=== PATIENT | male | born 1965 | race Caucasian/White ===

== ENCOUNTER 2024-07-13 20:03 | Inpatient (IN) | payer MEDICAID, OTHER ==
[~2024-07-13] VITALS: Ht 180.3 cm; Wt 85.6 kg
[2024-07-13 20:23] LABS: Basophils # (auto) 0.1 10 ^3/uL (0-0.2); Eosinophils # (auto) 0.1 10 ^3/uL (0-0.8); Eosinophils % (auto) 0.9 % (0.0-7.0); Hematocrit 49.5 % (41.0-53.0); Lymphocytes # (auto) 2.7 10 ^3/uL (0.4-5.4); Lymphocytes % (auto) 28.2 % (10.0-50.0); Mean Corpuscular Hemoglobin 33.8 pg (28.0-32.0); Mean Corpuscular Hgb Conc. 34.3 g/dL (32.0-36.0); Mean Corpuscular Volume 98.7 fL (80.0-100.0); Monocytes # (auto) 0.9 10 ^3/uL (0-1.3); Monocytes % (auto) 9.7 % (0.0-12.0); Neutrophils # (auto) 5.7 10 ^3/uL (1.6-8.6); Neutrophils % (auto) 60.2 % (37.0-80.0); Nucleated Red Blood Cells % 0.2 %; Platelet Count (auto) 170 10^3/uL (140-450); Red Blood Cells 5.01 10^6/uL (4.5-5.90); Red Cell Distribution Width 13.2 % (11.8-14.3); White Blood Cell 9.5 10^3/uL (4.4-10.8)
--- NOTE | 2024-07-13 20:24 | ED.PDOC ---
History of Present Illness HPI Comments 58 y/o M, with a history of unspecified chronic blood clot disorder, DM, and HTN w/Clonidine PRN, presents with c/o chest, neck, and lower back pain, palpitations, and shortness of breath. Patient is a poor historian. He endorses on symptoms being ongoing for unspecified amount of time and worsening within t he past few days. Patient endorses on pain being a pounding sensation localized underneath his IVC filter. Reports upcoming appointment with his traffic attendant, Dr. Cuadra, in addition to being referred to [facility] after his old inweaver, Dr. Paez, moved to another facility. Patient denies having any nausea, vomiting, cough, congestion, fever, chills, or further associated symptoms. Time Seen by MD: 20:10 Reviewed Notes: Nurses Notes, Medications, Allergies Allergies: Coded Allergies: Ketorolac Tromethamine (Verified Allergy, Severe, 07/13/24) Topiramate (Verified Allergy, Severe, 07/13/24) Tramadol (Verified Allergy, Severe, 07/13/24) Home Meds Reported Medications Insulin Lispro (Humalog Kwikpen) 100 Unit/Ml Inj, SC unknown dosage 07/15/24 Insulin Glargine (Basaglar Kwikpen) 100 Unit/Ml Inj, SC unknown dosage 07/15/24 Carvedilol (Carvedilol) 25 Mg Tab, 1 TAB PO BID 07/15/24 Spironolactone (Spironolactone) 50 Mg Tab, 1 TAB PO DAILY 07/15/24 Umeclidinium [place] (Incruse Ellipta) 62.5 Mcg/Inh Inh, 1 PUFF INH DAILY 07/15/24 Pantoprazole Sodium Sesquihydr (Pantoprazole Sodium) 40 Mg Tab, 1 TAB PO DAILY 07/15/24 Hydralazine HCl (Hydralazine HCl) 25 Mg Tab, 1 TAB PO TID 07/15/24 Losartan Potassium (Losartan Potassium) 100 Mg Tab, 1 TAB PO DAILY 07/15/24 Enoxaparin Sodium (Lovenox) 80 Mg/0.8 Ml Ij, 80 MG SC BID, INJ 07/14/24 Information Source: Patient Mode of Arrival: Ambulatory Severity: Moderate Timing: Days Duration: Since onset Prehospital treatment: None Past Medical History PAST MEDICAL HISTORY: DM, HTN Past Medical History (Other): unspecified chronic blood clot disorder Surgical History (Other): neck and back spinal fusion, left-hip surgery Family History Family History: Unknown Social History Smoker: Non-Smoker Alcohol: Denies ETOH Use Drugs: Denies Drug Use Lives In: Home All Other Systems: Reviewed and Negative (Comprehensive systems review obtained and negative except for what is stated in the HPI.) Physical Exam General Appearance: Normal, Other (anxious appearing ) HEENT: Normal ENT Inspection, Pharynx Normal, TMs Normal Neck: Full Range of Motion, Non-Tender, Normal, Normal Inspection Respiratory: Chest Non-Tender, Lungs Clear, No Accessory Muscle Use, No Respiratory Distress, Normal Breath Sounds Cardiovascular: No Edema, No JVD, No Murmur, No Gallop, Normal Peripheral Pulses, Tachycardia, Other (regular rhythm) Breast Exam: Deferred Gastrointestinal: No Organomegaly, Non Tender, No Pulsatile Mass, Normal Bowel Sounds, Soft Genitalia: Deferred Pelvic: Deferred Rectal: Deferred Extremities: No calf tenderness, Normal capillary refill, Normal inspection, Normal range of motion, Non-tender, No pedal edema Musculoskeletal : Apperance: Normal Neurologic: Alert, international broadcast music librarian II-XII nml as Tested, No Motor Deficits, Normal Affect, Normal Mood, No Sensory Deficits Cerebellar Function: Normal Reflexes: Normal Skin: Dry, Normal Color, Warm Lymphatic: No Adenopathy Was a procedure done? Was a procedure done?: No EKG EKG : Pulse Rate (adult): 118 [place]: LAD Cardiac Rhythm: ST Block: None Hypertrophy: None ST: Normal Differential Dx Considerations may include: NE, PE, ACS, URI, PNA, anxiety, angina, gastritis, gastroenteritis, costochondritis, pericarditis, among others X-Ray, Labs, Meds, VS Vital Signs Date Time Temp Pulse Resp B/P (MAP) Pulse Ox O2 Delivery O2 Flow Rate FiO2 07/13/24 23:04 69 20 96 Room Air* 0 21 07/13/24 23:04 98.0 69 20 154/118 (130) 96 98.0 07/13/24 22:56 69 20 154/118 07/13/24 21:08 115 07/13/24 20:27 118 07/13/24 20:10 118 07/13/24 20:04 98.0 125 20 167/128 (141) 97 98.0 Lab Test 07/14/24 00:13 07/13/24 23:23 07/13/24 22:54 07/13/24 22:47 Range/Units POC Glucose 344 H 420 *H 70-106 mg/dl Sodium Level 132 #L 136-145 mmol/L Potassium Level 4.0 3.5-5.1 mmol/L Chloride Level 102 98-107 mmol/L Carbon Dioxide Level 14 L 20-31 mmol/L Anion Gap 16 H 5-15 Blood Urea Nitrogen 36 H 9-23 mg/dL Creatinine 1.64 H 0.700-1.30 mg/dL Glomerular Filtration Rate Calc 48 >90 mL/min BUN/Creatinine Ratio 22.0 H 10.0-20.0 Serum Glucose 379 #H 74-106 mg/dL Calcium Level 10.0 8.7-10.4 mg/dL Phosphorus Level 2.6 2.4-5.1 mg/dL Magnesium Level 1.7 1.6-2.6 mg/dL Troponin I High Sensitivity 48 </=54 ng/L Blood Gas Specimen Type Venous Blood Gas Sample Site Vbg - n/a Blood Gas Patient Temperature 37.0 Arterial Blood Date Drawn [id number] Rivera Test N/a Venous Blood pH 7.390 7.320-7.430 Venous Blood pCO2 at Patient Temp 23.1 L 38.0-54.0 mmHg Venous Blood pO2 at Patient Temp 54.6 H 23.0-48.0 mmHg Venous Blood HCO3 13.7 L 22.0-29.0 mmol/L Venous Blood Base Excess -9.0 L -2.0-3.0 mmol/L Blood Gas Liter Flow 0.00 Blood Gas Modality Room air Blood Gas Spontaneous Rate 22 FiO2 % 21.0 Specimen Drawn By Bridgette stout rn Test 07/13/24 21:12 07/13/24 20:12 Range/Units Serum Osmolality 312 H 278-298 mOsm/kg Troponin I High Sensitivity 39 43 </=54 ng/L White Blood Count 9.5 4.4-10.8 10^3/uL Red Blood Count 5.01 4.5-5.90 10^6/uL Hemoglobin 17.0 13.5-17.5 g/dL Hematocrit 49.5 41.0-53.0 % Mean Corpuscular Volume 98.7 80.0-100.0 fL Mean Corpuscular Hemoglobin 33.8 H 28.0-32.0 pg Mean Corpuscular Hemoglobin Concent 34.3 32.0-36.0 g/dL Red Cell Distribution Width 13.2 11.8-14.3 % Platelet Count 170 140-450 10^3/uL Mean Platelet Volume 8.5 6.9-10.8 fL Neutrophils (%) (Auto) 60.2 37.0-80.0 % Lymphocytes (%) (Auto) 28.2 10.0-50.0 % Monocytes (%) (Auto) 9.7 0.0-12.0 % Eosinophils (%) (Auto) 0.9 0.0-7.0 % Basophils (%) (Auto) 1.0 0.0-2.0 % Neutrophils # (Auto) 5.7 1.6-8.6 10 ^3/uL Lymphocytes # (Auto) 2.7 0.4-5.4 10 ^3/uL Monocytes # (Auto) 0.9 0-1.3 10 ^3/uL Eosinophils # (Auto) 0.1 0-0.8 10 ^3/uL Basophils # (Auto) 0.1 0-0.2 10 ^3/uL Nucleated Red Blood Cells 0.2 % D-Dimer, Quantitative 0.26 0.0-0.49 mg/L FEU Sodium Level 127 L 136-145 mmol/L Potassium Level 4.2 3.5-5.1 mmol/L Chloride Level 93 L 98-107 mmol/L Carbon Dioxide Level 14 L 20-31 mmol/L Anion Gap 20 H 5-15 Blood Urea Nitrogen 27 H 9-23 mg/dL Creatinine 1.91 H 0.700-1.30 mg/dL Glomerular Filtration Rate Calc 40 >90 mL/min BUN/Creatinine Ratio 14.1 10.0-20.0 Serum Glucose 498 *H 74-106 mg/dL Calcium Level 11.7 H 8.7-10.4 mg/dL B-Type Natriuretic Peptide 44.89 0-100 pg/mL Beta-Hydroxybutyric Acid 1.826 H < 0.4 mmol/L Time of 1ST Reevaluation: 20:40 Reevaluation 1ST: Unchanged Patient Education/Counseling: Diagnosis, Treatment, Other (need for admission ) Family Education/Counseling: No Family Present Additional Information Reviewed patient's previous visit(s): N/A The following tests were ordered, and results were reviewed by me: BNP, D-dimer, UA, EKG, troponin, CXR, CBC, BMP Additional information was gathered from interviewing the following independent historian: N/A I reviewed and agreed with the following test results read by other provider: CXR I discussed treatments and results with medical personnel and: PATIENT Departure 1 Departure Time of Disposition: 05:01 (Patient presented in DKA. We will admit patient for further workup) Impression: Primary Impression: DKA, type 2, not at goal Additional Impressions: Chest pain Qualified Codes: R07.9 - Chest pain, unspecified Shortness of breath Disposition: ADMITTED INPATIENT Admit to: ICU Condition: Critical Critical Care Note Critical Care Time?: Yes Critical care comment: DKA Authorized and Performed by: Chela Irizarry MD Total critical care time: Approximately 39 minutes Due to a high probability of clinically significant, life threatening deterioration, the patient required my highest level of preparedness to intervene emergently and I personally spent this critical care time directly and personally managing the patient. This critical care time included obtaining a history; examining the patient; pulse oximetry; ordering and review of studies; arranging urgent treatment with development of a management plan; evaluation of patient's response to treatment; frequent reassessment; and, discussions with other providers. This critical care time was performed to assess and manage the high probability of imminent, life-threatening deterioration that could result in multi-organ failure. It was exclusive of separately billable procedures and treating other patients and teaching time. Please see my other sections and the rest of the note for further information on patient assessment and treatment. Stability Stability form required: No Heart Score Heart Score: Heart Score Response (Comments) Value History Moderate Suspicious 1 EKG Normal 0 Age 45-64 1 Risk Factors >3 or Hx ASHD 2 Troponin Normal limit 0 Total 4 I personally scribed for CHELA RIIZARRY MD ([email or web address]) on 07/13/24 at 20:24. Electronically submitted by Kaz Callahan ([email or web address]). I personally scribed for CHELA IRIZARRY MD ([email or web address]) on 07/13/24 at 20:27. Electronically submitted by Kaz Callahan ([email or web address]). I personally scribed for CHELA IRIZARRY MD ([email or web address]) on 07/13/24 at 21:19. Electronically submitted by Kaz Callahan ([email or web address]). CHELA IRIZARRY MD July 13, 2024 20:24
[2024-07-13 20:32] LABS: Potassium 4.2 mmol/L (3.5-5.1)
[2024-07-13 20:33] LABS: Anion Gap 20 (5-15)
[2024-07-13 20:38] LABS: BUN/Creatinine Ratio 14.1 (10.0-20.0)
[2024-07-13 20:41] LABS: Blood Urea Nitrogen 27 mg/dL (9-23); Calcium 11.7 mg/dL (8.7-10.4); Carbon Dioxide 14 mmol/L (20-31); Chloride 93 mmol/L (98-107); Sodium 127 mmol/L (136-145)
[2024-07-13 20:44] LABS: Glucose 498 mg/dL (74-106)
--- NOTE | 2024-07-13 21:44 | DVH ---
CHEST RADIOGRAPH Indication: CHEST PAIN Technique: Single frontal view of the chest was obtained Comparison: None FINDINGS: Lines and Tubes: None Lungs: No focal consolidation. Pleura: No effusion. No pneumothorax. Cardiomediastinal contours: Unremarkable Bones: No acute osseous abnormality. Partially visualized cervical fixation hardware. IMPRESSION: No acute cardiopulmonary disease.
[2024-07-13] MEDS: SODIUM CHLORIDE 0.9% 1,000 ML IV SCH (22:45)
[2024-07-13] MEDS ORDERED: DEXTROSE (50%) 50ML SYRG IV PRN (22:45)
[2024-07-13] MEDS: INSULIN DRIP 100 UNIT/100ML 100 ML IV SCH (22:45)
[2024-07-13] MEDS: METOCLOPRAMIDE HCL 5MG/ml INJ 2ml VIAL IV ONE (22:56)
[2024-07-13] MEDS: MORPHINE SULFATE 4 MG/ML SYR/VIAL IV ONE (22:56)
[2024-07-13] MEDS: SODIUM CHLORIDE 0.9% 1,000 ML IV ONE (22:57)
[2024-07-13] MEDS: InsuLIN REG 1unit/0.01ml Soln (100units/ml) IV ONE (22:58)
[2024-07-13] MEDS: ACETAMINOPHEN 325 MG TAB PO ONE (22:58)
[2024-07-13 23:04] VITALS: PULSE 69; RESP 20; O2SAT 96
[2024-07-13 23:47] LABS: Chloride 102 mmol/L (98-107)
[2024-07-13 23:48] LABS: Anion Gap 16 (5-15)
[2024-07-13 23:54] LABS: Magnesium 1.7 mg/dL (1.6-2.6)
[2024-07-13 23:55] LABS: Phosphorus 2.6 mg/dL (2.4-5.1)
[2024-07-14] LABS: Blood Urea Nitrogen 36 mg/dL (9-23); Carbon Dioxide 14 mmol/L (20-31); Glucose 379 mg/dL (74-106); Sodium 132 mmol/L (136-145)
[2024-07-14] MEDS: SODIUM CHLORIDE 0.9% 1,000 ML IV ONE (00:06)
[2024-07-14] MEDS: ACCU-CHEK COMFORT CURVE STRIP VI SCH ×3 (00:11→18:58)
[2024-07-14] MEDS: INSULIN LANTUS (GLARGINE) 1 /0.01ml (100units/ml) SC ONE (00:18)
[2024-07-14] MEDS ORDERED: MORPHINE SULFATE INJ 2 MG/ml SYRG IV PRN (00:30)
[2024-07-14] MEDS ORDERED: METOCLOPRAMIDE HCL 5MG/ml INJ 2ml VIAL IV PRN (00:30)
[2024-07-14] MEDS ORDERED: D5W/SOD CHL 0.45%/KCL 20MEQ 1,000 ML IV PRN (00:30)
[2024-07-14] MEDS ORDERED: NITROGLYCERIN 0.4 MG SL TAB SL PRN (00:30)
[2024-07-14] MEDS ORDERED: DOCUSATE SOD 100 MG CAP PO PRN (00:30)
[2024-07-14] MEDS ORDERED: MAGNESIUM SULFATE 1GM/100ML 200 ML IV ONE (00:30)
[2024-07-14] MEDS ORDERED: ACETAMINOPHEN 325 MG TAB PO PRN (00:30)
[2024-07-14] MEDS ORDERED: DEXTROSE (50%) 50ML SYRG IV PRN ×2 (00:30→17:00)
[2024-07-14] MEDS: SODIUM CHLORIDE 0.9% 1,000 ML IV SCH ×3 (01:09→03:30)
[2024-07-14 01:30] VITALS: RESP 18; O2SAT 96
[2024-07-14] MEDS: INSULIN DRIP 100 UNIT/100ML 100 ML IV SCH (01:51)
[2024-07-14] MEDS: ONDANSETRON HCL 4 MG/2 ML VIAL IV PRN (01:59)
[2024-07-14] MEDS: MORPHINE SULFATE INJ 2 MG/ml SYRG IV PRN (02:00)
--- NOTE | 2024-07-14 02:13 | ECG ---
[facility] Test Date: 2024-07-13 Test Time: 21:08:09 Pat Name: RONI NAIDU Department: ER Room: 0288T Gender: M Roofer: ROBINSON : 1965 Requested By: CHELA IRIZARRY Order Number: [id number] Reading MD: Ahemt Cuadra Measurements Intervals [place] Rate: 115 P: 66 [place]: 165 QRS: -57 QRSD: 89 T: 82 QT: 315 QTc: 436 Interpretive Statements Sinus tachycardia Biatrial enlargement Left anterior fascicular block Electronically Signed On 07-19-2024 21:50:15 PDT by Ahmet Cuadra Please click the below link to view image of tracing.
--- NOTE | 2024-07-14 02:14 | ECG ---
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
--- NOTE | 2024-07-14 02:46 | DVHHP2 ---
BROOKLYNN ERWIN RESIDENT CARE MANAGER 07/14/24 0246: History of Present Illness Reason for Visit: Chest pain History of Present Illness 62-year-old male with history of clotting disorder with IVC filter, hyperte nsion, insulin-dependent diabetes mellitus presents with complaints of chest pain, palpitations, shortness of breath, excessive thirst and urination, back pain worsening over the previous 3 days. Information in this HPI is limited due to the patient being a poor historian. During the emergency department evaluation CMP: Na 127, K4.2, CO2 14, anion gap 20, BUN 27, creatinine 1.91, BG 498, beta hydroxybutyrate acid 1.826. Troponin is-43/39, BNP 44.89. Patient endorses his nurse research is Dr. Cuadra. Was previously being seen by Dr. Paez for Hematology. On arrival patient was initially tachycardic however has improved with IV fluid hydration. At this time patient states palpitations have improved. Denies fevers, chills, dizziness, abdominal pain, dysuria, hematuria, hematemesis, hematochezia. Cardiovascular: HTN Heme/Onc: Other (Clotting disorder) Endocrine: Diabetes Smoke: No ALCOHOL: occassional Drugs: None Lives: with Family Review of Systems Constitutional: Yes: Malaise; No: Fever, Chills, Sweats, Weakness, Other ENT: No: Ear pain, Ear discharge, Nose pain, Nose discharge, Nose congestion, Mouth pain, Mouth swelling, Throat pain, Throat swelling, Other Respiratory: Shortness of breath; No: Cough, Dry, SOB with excertion, Wheezing, Hemoptysis, Pleuritic Pain, Sputum, Wheezing, Other Cardiovascular: Chest Pain, Palpitations; No: Orthopnea, Paroxysmal Noc. Dyspnea, Edema, Lt Headedness, Other Gastrointestinal: No: Nausea, Vomiting, Abdominal Pain, Diarrhea, Constipation, Melena, Hematochezia, Other Genitourinary: No Dysuria, No Frequency, No Incontinence, No Hematuria, No Retention, No Other Musculoskeletal: No: other, neck pain, shoulder pain, arm pain, back pain, hand pain, leg pain, foot pain Skin: No: Rash, Lesions, Jaundice, Bruising, Other Neurological: No: Weakness, Numbness, Incoordination, Change in speech, Confusion, Seizures, Other Allergies: Coded Allergies: Ketorolac Tromethamine (Verified Allergy, Severe, 07/13/24) Topiramate (Verified Allergy, Severe, 07/13/24) Tramadol (Verified Allergy, Severe, 07/13/24) Medications Current Medications Medications Dose Ordered Sig/Chon Route Start Time Stop Time Status Last Admin Dose Admin Sodium Chloride 1,000 ml @ 500 mls/hr Q2H IV 07/13/24 22:45 07/14/24 02:44 Sodium Chloride 1,000 ml @ 250 mls/hr Q4H IV 07/14/24 02:45 07/14/24 04:44 Sodium Chloride 1,000 ml @ 150 mls/hr Q6H40M IV 07/14/24 04:45 Insulin Human (Reg)/Sodium Chloride 100 ml @ 0.5 mls/hr Q24H IV 07/13/24 22:45 Dextrose 50 ml UD PRN IV 07/13/24 22:45 Diagnostic Test (Pha) 1 strip Q90MIN 07/14/24 00:00 07/14/24 00:11 1 STRIP Insulin Glargine 15 units DAILY SC 07/14/24 10:00 Metoclopramide HCl 10 mg Q4HP PRN IV 07/14/24 00:30 Docusate Sodium 100 mg BIDPRN PRN PO 07/14/24 00:30 Acetaminophen 650 mg Q6HP PRN PO 07/14/24 00:30 Acetaminophen/ Hydrocodone Bitart 1 tab Q4HP PRN PO 07/14/24 00:30 Ondansetron HCl 4 mg Q4HP PRN IV 07/14/24 00:30 07/14/24 01:59 4 MG Morphine Sulfate 2 mg Q4HPRN PRN IV 07/14/24 00:30 07/14/24 02:00 2 MG Enoxaparin Sodium 40 mg DAILY SC 07/14/24 10:00 Nitroglycerin 0.4 mg Q5MINP PRN SL 07/14/24 00:30 Morphine Sulfate 2 mg Q30M PRN IV 07/14/24 00:30 Sodium Chloride 1,000 ml @ 125 mls/hr Q8H IV 07/14/24 06:30 Potassium Chloride/Dextrose/ Sod Cl 1,000 ml @ 125 mls/hr Q8H PRN IV 07/14/24 00:30 Insulin Human (Reg)/Sodium Chloride 100 ml @ 0.5 mls/hr Q24H IV 07/14/24 00:30 07/14/24 01:51 6 MLS/HR Dextrose 50 ml UD PRN IV 07/14/24 00:30 Diagnostic Test (Pha) 1 strip Q90MIN 07/14/24 01:30 07/14/24 01:41 1 STRIP Carvedilol 25 mg BID PO 07/14/24 10:00 Hydralazine HCl 10 mg Q4HP PRN IV 07/14/24 01:00 Exam Vital Signs Vital Signs Date Time Temp Pulse Resp B/P (MAP) Pulse Ox O2 Delivery O2 Flow Rate FiO2 07/14/24 02:00 98 18 164/108 07/13/24 23:04 96 Room Air* 0 21 07/13/24 23:04 98.0 98.0 General Appearance: Alert, Oriented X3, Cooperative, mild distress HEENT: Atraumatic, PERRLA, EOMI Respiratory: Clear to auscultation, Normal air movement Cardiovascular: Regular rate, Normal S1, Normal S2 Abdominal: Normal bowel sounds, Soft, No tenderness Extremities: No clubbing, No cyanosis, No edema Skin: No rashes Neuro: Normal gait, Normal speech, Strength at 5/5 X4 ext Psych/Mental Status: Mental status NL, Mood NL Labs/Xrays Labs Test 07/14/24 01:40 07/13/24 23:23 07/13/24 22:47 07/13/24 21:12 Range/Units POC Glucose 465 *H 70-106 mg/dl Sodium Level 132 #L 136-145 mmol/L Potassium Level 4.0 3.5-5.1 mmol/L Chloride Level 102 98-107 mmol/L Carbon Dioxide Level 14 L 20-31 mmol/L Anion Gap 16 H 5-15 Blood Urea Nitrogen 36 H 9-23 mg/dL Creatinine 1.64 H 0.700-1.30 mg/dL Glomerular Filtration Rate Calc 48 >90 mL/min BUN/Creatinine Ratio 22.0 H 10.0-20.0 Serum Glucose 379 #H 74-106 mg/dL Calcium Level 10.0 8.7-10.4 mg/dL Phosphorus Level 2.6 2.4-5.1 mg/dL Magnesium Level 1.7 1.6-2.6 mg/dL Troponin I High Sensitivity 48 </=54 ng/L Blood Gas Specimen Type Venous Blood Gas Sample Site Vbg - n/a Blood Gas Patient Temperature 37.0 Arterial Blood Date Drawn [id number] Rivera Test N/a Venous Blood pH 7.390 7.320-7.430 Venous Blood pCO2 at Patient Temp 23.1 L 38.0-54.0 mmHg Venous Blood pO2 at Patient Temp 54.6 H 23.0-48.0 mmHg Venous Blood HCO3 13.7 L 22.0-29.0 mmol/L Venous Blood Base Excess -9.0 L -2.0-3.0 mmol/L Blood Gas Liter Flow 0.00 Blood Gas Modality Room air Blood Gas Spontaneous Rate 22 FiO2 % 21.0 Specimen Drawn By Bridgette stout rn Serum Osmolality 312 H 278-298 mOsm/kg Test 07/13/24 20:12 Range/Units White Blood Count 9.5 4.4-10.8 10^3/uL Red Blood Count 5.01 4.5-5.90 10^6/uL Hemoglobin 17.0 13.5-17.5 g/dL Hematocrit 49.5 41.0-53.0 % Mean Corpuscular Volume 98.7 80.0-100.0 fL Mean Corpuscular Hemoglobin 33.8 H 28.0-32.0 pg Mean Corpuscular Hemoglobin Concent 34.3 32.0-36.0 g/dL Red Cell Distribution Width 13.2 11.8-14.3 % Platelet Count 170 140-450 10^3/uL Mean Platelet Volume 8.5 6.9-10.8 fL Neutrophils (%) (Auto) 60.2 37.0-80.0 % Lymphocytes (%) (Auto) 28.2 10.0-50.0 % Monocytes (%) (Auto) 9.7 0.0-12.0 % Eosinophils (%) (Auto) 0.9 0.0-7.0 % Basophils (%) (Auto) 1.0 0.0-2.0 % Neutrophils # (Auto) 5.7 1.6-8.6 10 ^3/uL Lymphocytes # (Auto) 2.7 0.4-5.4 10 ^3/uL Monocytes # (Auto) 0.9 0-1.3 10 ^3/uL Eosinophils # (Auto) 0.1 0-0.8 10 ^3/uL Basophils # (Auto) 0.1 0-0.2 10 ^3/uL Nucleated Red Blood Cells 0.2 % D-Dimer, Quantitative 0.26 0.0-0.49 mg/L FEU B-Type Natriuretic Peptide 44.89 0-100 pg/mL Beta-Hydroxybutyric Acid 1.826 H < 0.4 mmol/L Assessment/Plan Assessment/Plan Diabetic ketoacidosis, early onset Uncontrolled T2DM with hyperglycemia Metabolic acidosis Acute kidney injury likely VMN Hypertension Chest pain Plan Admit ICU DKA protocol. IV insulin drip, IV fluids. Check BMP, magnesium, phosphate Q6 hours. Monitor BMP. Correct electrolytes have needed Cardiology consult. Echocardiogram. Continue home medication. As needed anti hypertensive for optimal BP management. GI ppx protonix / DVT ppx lovenox Plan discussed with: Patient My Orders Orders - BROOKLYNN ERWIN NP Procedure Category Date Status Time Admit ADMIT 07/14/24 Transmitted 00:27 Code Status CODE 07/14/24 Transmitted 00:27 Vital Signs RADHA 07/14/24 In Process 00:27 Review Orders With RADHA 07/14/24 In Process Adm. 00:27 Encourage Activity As RADHA 07/14/24 In Process Tolerate 00:27 Oxygen By Face Mask RT 07/14/24 Transmitted 00:27 Metoclopramide PHA 07/14/24 In Process Injection (Reglan 00:30 Docusate Sodium PHA 07/14/24 In Process Capsule (Colace 00:30 Acetaminophen Tablet PHA 07/14/24 In Process (Tylenol Tablet) 00:30 Notify Of Changes RADHA 07/14/24 In Process From Base 00:27 Advance Directive RADHA 07/14/24 In Process 00:27 Echo 2d Mode Cardiac US 07/14/24 Logged DOP 00:27 Basic Metabolic Panel LAB 07/15/24 Verified 05:00 Basic Metabolic Panel LAB 07/16/24 Verified 05:00 Basic Metabolic Panel LAB 07/17/24 Verified 05:00 Basic Metabolic Panel LAB 07/18/24 Verified 05:00 Basic Metabolic Panel LAB 07/19/24 Verified 05:00 Complete Blood Count LAB 07/14/24 Logged 05:00 Complete Blood Count LAB 07/15/24 Verified 05:00 Complete Blood Count LAB 07/16/24 Verified 05:00 Complete Blood Count LAB 07/17/24 Verified 05:00 Complete Blood Count LAB 07/18/24 Verified 05:00 Patient Condition ORDERS 07/14/24 Transmitted 00:27 Allergies RADHA 07/14/24 In Process 00:27 Hydrocodone-Acet PHA 07/14/24 In Process 5/325mg Tab ([place] 00:30 Ondansetron Hcl PHA 07/14/24 In Process (Zofran) 00:30 Morphine Sulfate PHA 07/14/24 In Process Injection 00:30 Enoxaparin Sodium PHA 07/14/24 In Process (Lovenox) 10:00 Sequential RADHA 07/14/24 In Process Compression Device Nitroglycerin PHA 07/14/24 In Process Sublingual (Ntrostat 00:30 Morphine Sulfate PHA 07/14/24 In Process Injection 00:30 Stat Ekg For Chest RADHA 07/14/24 In Process Pain 00:27 Notify Of Changes RADHA 07/14/24 In Process From Base 00:27 Poultry Scientist For RADHA 07/14/24 In Process 24 Hours 00:27 Emergency Dysrhythmia RADHA 07/14/24 In Process Protocol 00:27 Rhythm Strips Once RADHA 07/14/24 In Process Every Shift 00:27 Oxygen By Nasal RT 07/14/24 Transmitted Cannula 00:27 Insulin Drip Protocol RAHDA 07/14/24 In Process Sodium Chloride 0.9% PHA 07/14/24 In Process 06:30 D5w/Sod Chl 0.45%/Kcl PHA 07/14/24 In Process 20meq 00:30 Insulin Drip 100 PHA 07/14/24 In Process Unit/100ml (Myxredlin 00:30 Dextrose 50% Syringe PHA 07/14/24 In Process 00:30 Glucose Blood PHA 07/14/24 In Process (Accu-Chek Comfort 01:30 Phosphorus LAB 07/15/24 Verified 00:00 Magnesium LAB 07/15/24 Verified 00:00 Basic Metabolic Panel LAB 07/14/24 Logged 06:00 Basic Metabolic Panel LAB 07/14/24 Logged 12:00 Basic Metabolic Panel LAB 07/14/24 Logged 18:00 Basic Metabolic Panel LAB 07/15/24 Verified 00:00 Urinalysis LAB 07/14/24 Logged 00:27 Neurological RADHA 07/14/24 In Process Assessment 00:27 Vs/Hemodynamics RADHA 07/14/24 In Process 00:27 * Cardiology Consult CONS 07/14/24 Transmitted 00:27 Phosphorus LAB 07/14/24 Logged 06:00 Magnesium LAB 07/14/24 Logged 06:00 Magnesium LAB 07/14/24 Logged 12:00 Phosphorus LAB 07/14/24 Logged 12:00 Magnesium LAB 07/14/24 Logged 18:00 Phosphorus LAB 07/14/24 Logged 18:00 Carvedilol Tablet PHA 07/14/24 In Process (Coreg Tablet) 10:00 Hydralazine Injection PHA 07/14/24 In Process (Apresoline Inject 01:00 Communication Order ORDERS 07/14/24 Transmitted 02:35 Pantoprazole PHA 07/14/24 Verified (Protonix) 10:00 Date of Service: July 14, 2024 Billing Provider: BRONWYN CALVERT MD Common Visit Codes: NOT BILLABLE BRONWYN CALVERT MD 07/14/24 1456: Review of Systems Allergies: Coded Allergies: Ketorolac Tromethamine (Verified Allergy, Severe, 07/13/24) Topiramate (Verified Allergy, Severe, 07/13/24) Tramadol (Verified Allergy, Severe, 07/13/24) BROOKLYNN ERWIN NP July 14, 2024 02:46 BRONWYN CALVERT MD July 14, 2024 14:56
[2024-07-14 04:05] VITALS: PULSE 85; RESP 16; O2SAT 96
[2024-07-14] MEDS: HYDROcodone-ACET 5/325MG TAB PO PRN (04:05)
[2024-07-14] MEDS ORDERED: SODIUM CHLORIDE 0.9% 1,000 ML IV SCH (06:30)
[2024-07-14 06:48] LABS: Urine Bacteria None Seen /hpf (None Seen)
[2024-07-14 07:09] LABS: Urine Blood Negative /uL (Negative); Urine Clarity Clear (Clear); Urine Color Light-Yellow (Yellow); Urine Protein, UAD TRACE (Negative); Urine Specific Gravity 1.027 (1.001-1.035); Urine Squamous Epithelial Cell None Seen /hpf (<5); Urine Urobilinogen Normal (Negative); Urine WBC < 1 /HPF (0-3); Urine pH 5.5 (5.0-9.0)
[2024-07-14 07:09] LABS: Anion Gap 14 (5-15); Calcium 9.8 mg/dL (8.7-10.4); Carbon Dioxide 12 mmol/L (20-31); Chloride 108 mmol/L (98-107); Sodium 134 mmol/L (136-145)
[2024-07-14 07:15] LABS: BUN/Creatinine Ratio 13.3 (10.0-20.0); Blood Urea Nitrogen 22 mg/dL (9-23)
[2024-07-14] MEDS: hydrALAZINE HCL 20 MG/ML VL IV PRN (07:15)
[2024-07-14 07:16] LABS: Glucose 227 mg/dL (74-106); Magnesium 2.2 mg/dL (1.6-2.6)
[2024-07-14 07:17] LABS: Phosphorus 1.2 mg/dL (2.4-5.1)
[2024-07-14 08:20] LABS: Basophils # (auto) 0.1 10 ^3/uL (0-0.2); Basophils % (auto) 0.9 % (0.0-2.0); Eosinophils # (auto) 0.1 10 ^3/uL (0-0.8); Eosinophils % (auto) 1.2 % (0.0-7.0); Hematocrit 40.6 % (41.0-53.0); Lymphocytes # (auto) 2.9 10 ^3/uL (0.4-5.4); Lymphocytes % (auto) 37.9 % (10.0-50.0); Mean Corpuscular Hemoglobin 33.4 pg (28.0-32.0); Mean Corpuscular Hgb Conc. 34.4 g/dL (32.0-36.0); Mean Corpuscular Volume 97.1 fL (80.0-100.0); Monocytes # (auto) 0.8 10 ^3/uL (0-1.3); Monocytes % (auto) 10.2 % (0.0-12.0); Neutrophils # (auto) 3.8 10 ^3/uL (1.6-8.6); Neutrophils % (auto) 49.8 % (37.0-80.0); Nucleated Red Blood Cells % 0.2 %; Platelet Count (auto) 114 10^3/uL (140-450); Red Blood Cells 4.19 10^6/uL (4.5-5.90); Red Cell Distribution Width 12.9 % (11.8-14.3); White Blood Cell 7.5 10^3/uL (4.4-10.8)
[2024-07-14] MEDS: CARVEDILOL 12.5 MG TAB PO SCH (09:55)
[2024-07-14] MEDS: PANTOPRAZOLE 40 MG/10 ML VIAL INJ IV SCH (09:56)
[2024-07-14] MEDS: ENOXAPARIN SOD 40 MG/0.4 ML SYRINGE SC SCH (09:56)
[2024-07-14] MEDS: INSULIN LANTUS (GLARGINE) 1 /0.01ml (100units/ml) SC SCH (10:06)
[2024-07-14 10:45] LABS: Calcium 9.8 mg/dL (8.7-10.4); Chloride 107 mmol/L (98-107); Potassium 4.2 mmol/L (3.5-5.1)
[2024-07-14 10:46] LABS: Anion Gap 12 (5-15)
[2024-07-14 10:51] LABS: BUN/Creatinine Ratio 16.8 (10.0-20.0)
[2024-07-14 10:52] LABS: Magnesium 1.8 mg/dL (1.6-2.6)
[2024-07-14 10:53] LABS: Blood Urea Nitrogen 25 mg/dL (9-23); Carbon Dioxide 17 mmol/L (20-31); Glucose 167 mg/dL (74-106); Sodium 136 mmol/L (136-145)
[2024-07-14 10:54] LABS: Phosphorus 1.8 mg/dL (2.4-5.1)
[2024-07-14 16:48] LABS: Anion Gap 9 (5-15); Potassium 4.1 mmol/L (3.5-5.1); Sodium 136 mmol/L (136-145)
[2024-07-14 16:49] LABS: Calcium 9.1 mg/dL (8.7-10.4)
[2024-07-14 16:54] LABS: BUN/Creatinine Ratio 16.8 (10.0-20.0); Magnesium 1.7 mg/dL (1.6-2.6)
[2024-07-14 16:55] LABS: Blood Urea Nitrogen 24 mg/dL (9-23); Carbon Dioxide 19 mmol/L (20-31); Chloride 108 mmol/L (98-107); Glucose 188 mg/dL (74-106)
[2024-07-14 16:56] LABS: Phosphorus 1.9 mg/dL (2.4-5.1)
--- NOTE | 2024-07-14 18:50 | DVHCONRES ---
Date Seen: July 14, 2024 Resident Creating Document: NATE KELLY RESIDENT Referring Physician Aníbal Perez NP Reason for Consultation Chest Pain History of Present Illness 58-year-old male patient with past medical history of hypertension, type 2 diabetes mellitus, COPD, liver cirrhosis, unknown familial clotting disorder, multiple DVTs, pulmonary embolism in the past, stented with complaints of chest pain, palpitation, shortness of breath, excessive thirst, urination and back pain. Patient mentioned that for last three days he has been having episodes of palpitations that last for few minutes which is associated with chest pain and shortness of breath and mentioned in the last 1 hour he had around four similar episodes. Patient's c software developer is Dr. Cuadra, for which he has an upcoming appointment. He described the pain, is in back, chest, hips at the same time. Patient has had a stress test two years ago which was normal. Patient is currently seeing [facility] for familial clotting disorder. Pt seen and examined in the ER, currently not mentioning of any chest pain or other cardiac symptoms, is currently on Insulin drip as he was found to be in DKA. past medical history hypertension, type 2 diabetes mellitus, COPD, liver cirrhosis, unknown familial clotting disorder, multiple DVTs, pulmonary embolism ?Syncope ? Paroxysmal AFib PSH IVC filter placement 3X, last one in june 2018 Social history Quit smoking in January 2022, used to smoke one pack for 20-30 years Quit alcohol, drank heavily for one year, quit in 2021 Denied marijuana and any other drug intake Family history Clotting disorder in mother CKD in father Breast cancer in mother at 65 Allergies: Coded Allergies: Ketorolac Tromethamine (Verified Allergy, Severe, 07/13/24) Topiramate (Verified Allergy, Severe, 07/13/24) Tramadol (Verified Allergy, Severe, 07/13/24) Current Medications Current Medications Medications (Trade) Dose Ordered Sig/Chon Route PRN Reason Start Time Stop Time Status Last Admin Sodium Chloride 1,000 ml @ 500 mls/hr Q2H IV 07/13/24 22:45 07/14/24 02:44 DC Sodium Chloride 1,000 ml @ 250 mls/hr Q4H IV 07/14/24 02:45 07/14/24 03:31 DC Sodium Chloride 1,000 ml @ 150 mls/hr Q6H40M IV 07/14/24 04:45 07/14/24 03:31 DC Insulin Human (Reg)/Sodium Chloride 100 ml @ 0.5 mls/hr Q24H IV 07/13/24 22:45 Dextrose 50 ml UD PRN IV SEE CURRENT ALGORITHM or SCALE 07/13/24 22:45 Diagnostic Test (Pha) (Accu-Chek Comfort Curve T) 1 strip Q90MIN 07/14/24 00:00 07/14/24 17:01 DC 07/14/24 16:31 Insulin Glargine (Lantus) 15 units DAILY SC 07/14/24 10:00 07/14/24 10:06 Metoclopramide HCl (Reglan Injection) 10 mg Q4HP PRN IV NAUSEA / VOMITING 07/14/24 00:30 Docusate Sodium (Colace Capsule) 100 mg BIDPRN PRN PO FOR CONSTIPATION 07/14/24 00:30 Acetaminophen (Tylenol Tablet) 650 mg Q6HP PRN PO PAIN SCALE 1-3 OR TEMP>100.4 07/14/24 00:30 Acetaminophen/ Hydrocodone Bitart ([place] 5/325MG Tab) 1 tab Q4HP PRN PO MODERATE PAIN (4-6 PAIN SCALE) 07/14/24 00:30 07/14/24 15:32 Ondansetron HCl (Zofran) 4 mg Q4HP PRN IV NAUSEA / VOMITING 07/14/24 00:30 07/14/24 11:02 Morphine Sulfate 2 mg Q4HPRN PRN IV SEVERE PAIN (7-10 PAIN SCALE) 07/14/24 00:30 07/14/24 11:02 Enoxaparin Sodium (Lovenox) 40 mg DAILY SC 07/14/24 10:00 07/14/24 09:56 Nitroglycerin (Ntrostat Sublingual) 0.4 mg Q5MINP PRN SL FOR CHEST PAIN 07/14/24 00:30 Morphine Sulfate 2 mg Q30M PRN IV FOR CHEST PAIN 07/14/24 00:30 Sodium Chloride 1,000 ml @ 125 mls/hr Q8H IV 07/14/24 06:30 07/14/24 03:31 DC Potassium Chloride/Dextrose/ Sod Cl 1,000 ml @ 125 mls/hr Q8H PRN IV BG < 200 07/14/24 00:30 07/14/24 17:01 DC Insulin Human (Reg)/Sodium Chloride 100 ml @ 0.5 mls/hr Q24H IV 07/14/24 00:30 07/14/24 17:01 DC 07/14/24 01:51 Dextrose 50 ml UD PRN IV SEE CURRENT ALGORITHM or SCALE 07/14/24 00:30 07/14/24 17:01 DC Diagnostic Test (Pha) (Accu-Chek Comfort Curve T) 1 strip Q90MIN 07/14/24 01:30 07/14/24 17:01 DC 07/14/24 03:07 Carvedilol (Coreg Tablet) 25 mg BID PO 07/14/24 10:00 07/14/24 09:55 Hydralazine HCl (Apresoline Injection) 10 mg Q4HP PRN IV SBP > 160 07/14/24 01:00 07/14/24 07:15 Pantoprazole Sodium (Protonix) 40 mg DAILY IV 07/14/24 10:00 07/14/24 09:56 Sodium Chloride 1,000 ml @ 125 mls/hr Q8H IV 07/14/24 03:30 07/14/24 12:00 Diagnostic Test (Pha) (Accu-Chek Comfort Curve T) 1 strip ACHS 07/14/24 17:00 UNV Insulin Human Regular (InsuLIN R) HS SC 07/14/24 22:00 UNV Insulin Human Regular (InsuLIN R) AC SC 07/14/24 17:00 UNV Dextrose 50 ml UD PRN IV Blood Sugar LESS THAN 60 07/14/24 17:00 UNV Review of Systems ROS Constitutional: Excessive thirst, No: Fever, Chills, Sweats, Weakness, Ma laise, Other Eyes: No: Pain, Vision change, Conjunctivae inflammation, Eyelid inflammation, Other, Redness ENT: No: Ear pain, Ear discharge, Nose pain, Nose discharge, Nose congestion, Mouth pain, Mouth swelling, Throat pain, Throat swelling, Other Respiratory: No: Cough, Dry, Shortness of breath, SOB with excertion, Wheezing, Hemoptysis, Pleuritic Pain, Sputum, Wheezing, Other Cardiovascular: Chest pain, palpitations, shortness of breath, no orthopnea, no PND Gastrointestinal: No: Nausea, Vomiting, Abdominal Pain, Diarrhea, Constipation, Melena, Hematochezia, Other Musculoskeletal: Back pain No: other, neck pain, shoulder pain, arm pain, back pain, hand pain, leg pain, foot pain Neurological:; No: Weakness, Numbness, Incoordination, Change in speech, Confusion, Seizures Vital Signs Vital Signs Date Time Temp Pulse Resp B/P (MAP) Pulse Ox O2 Delivery O2 Flow Rate FiO2 07/14/24 16:00 56 07/14/24 14:00 17 122/75 (91) 96 07/14/24 11:49 97.0 97.0 07/14/24 08:05 Room Air* 0 21 Physical Exam Examination General Appearance: Alert, Oriented X3, Cooperative, No acute distress HEENT: EOMI Respiratory: Clear to auscultation, Normal air movement Cardiovascular: Regular rate, Normal S1, Normal S2 Abdominal: Normal bowel sounds Extremities: No cyanosis, No edema, Normal pulses, No tenderness/swelling Skin: No rashes, No breakdown Neuro: Normal gait, Normal speech, Strength at 5/5 X4 ext, Normal tone, Se nsation intact, Cranial nerves 3-12 NL, Reflexes 2+ Psych/Mental Status: Mental status NL, Mood NL Labs/Diagnostic Data Labs Test 07/14/24 16:02 07/14/24 07:34 07/14/24 05:30 07/14/24 03:05 Range/Units Sodium Level 136 136-145 mmol/L Potassium Level 4.1 3.5-5.1 mmol/L Chloride Level 108 H 98-107 mmol/L Carbon Dioxide Level 19 L 20-31 mmol/L Anion Gap 9 5-15 Blood Urea Nitrogen 24 H 9-23 mg/dL Creatinine 1.43 H 0.700-1.30 mg/dL Glomerular Filtration Rate Calc 56 >90 mL/min BUN/Creatinine Ratio 16.8 10.0-20.0 Serum Glucose 188 H 74-106 mg/dL Calcium Level 9.1 8.7-10.4 mg/dL Phosphorus Level 1.9 L 2.4-5.1 mg/dL Magnesium Level 1.7 1.6-2.6 mg/dL White Blood Count 7.5 4.4-10.8 10^3/uL Red Blood Count 4.19 L 4.5-5.90 10^6/uL Hemoglobin 14.0 # 13.5-17.5 g/dL Hematocrit 40.6 #L 41.0-53.0 % Mean Corpuscular Volume 97.1 80.0-100.0 fL Mean Corpuscular Hemoglobin 33.4 H 28.0-32.0 pg Mean Corpuscular Hemoglobin Concent 34.4 32.0-36.0 g/dL Red Cell Distribution Width 12.9 11.8-14.3 % Platelet Count 114 L 140-450 10^3/uL Mean Platelet Volume 8.8 6.9-10.8 fL Neutrophils (%) (Auto) 49.8 37.0-80.0 % Lymphocytes (%) (Auto) 37.9 10.0-50.0 % Monocytes (%) (Auto) 10.2 0.0-12.0 % Eosinophils (%) (Auto) 1.2 0.0-7.0 % Basophils (%) (Auto) 0.9 0.0-2.0 % Neutrophils # (Auto) 3.8 1.6-8.6 10 ^3/uL Lymphocytes # (Auto) 2.9 0.4-5.4 10 ^3/uL Monocytes # (Auto) 0.8 0-1.3 10 ^3/uL Eosinophils # (Auto) 0.1 0-0.8 10 ^3/uL Basophils # (Auto) 0.1 0-0.2 10 ^3/uL Nucleated Red Blood Cells 0.2 % Urine Color Light-yellow Yellow Urine Clarity Clear Clear Urine pH 5.5 5.0-9.0 Urine Specific [place] 1.027 1.001-1.035 Urine Protein Trace H Negative Urine Ketones Trace Negative Urine Blood Negative Negative /uL Urine Nitrite Negative Negative Urine Bilirubin Negative Negative Urine Urobilinogen Normal Negative mg/dL Urine Leukocyte Esterase Negative Negative /uL Urine RBC 1 0 - 3 /hpf Urine Microscopic WBC < 1 0-3 /HPF Urine Squamous Epithelial Cells None seen <5 /hpf Urine Bacteria None seen None Seen /hpf Urine Glucose 4+ H Normal mg/dL POC Glucose 432 *H 70-106 mg/dl Test 07/13/24 23:23 07/13/24 22:47 07/13/24 21:12 07/13/24 20:12 Range/Units Troponin I High Sensitivity 48 </=54 ng/L Blood Gas Specimen Type Venous Blood Gas Sample Site Vbg - n/a Blood Gas Patient Temperature 37.0 Arterial Blood Date Drawn [id number] Rivera Test N/a Venous Blood pH 7.390 7.320-7.430 Venous Blood pCO2 at Patient Temp 23.1 L 38.0-54.0 mmHg Venous Blood pO2 at Patient Temp 54.6 H 23.0-48.0 mmHg Venous Blood HCO3 13.7 L 22.0-29.0 mmol/L Venous Blood Base Excess -9.0 L -2.0-3.0 mmol/L Blood Gas Liter Flow 0.00 Blood Gas Modality Room air Blood Gas Spontaneous Rate 22 FiO2 % 21.0 Specimen Drawn By Bridgette stout rn Serum Osmolality 312 H 278-298 mOsm/kg D-Dimer, Quantitative 0.26 0.0-0.49 mg/L FEU B-Type Natriuretic Peptide 44.89 0-100 pg/mL Beta-Hydroxybutyric Acid 1.826 H < 0.4 mmol/L Plan/Recommendation Assessment/plan Assessment #Chest pain, likely due to chronic pulmonary embolism -EKG shows no ST changes -Trops WNL #unknown familial clotting disorder #History of multiple DVTs #S/P IVC filter 3X #History of pulmonary embolism -pt takes Lovenox 80mg BID SC at home as prescibed by Hem[facility]Onc at [facility] #?Paroxysmal Afib -currently sinus rhythm -already on lovenox for unknown familial clotting disorder, History of multiple DVTs, History of pulmonary embolism -[id number] Score -3 points -HASBLED score 2 points # DKA, early onset # uncontrolled type 2 diabetes mellitus with hypoglycemia # CÉSAR due to VMN # Hypertension # COPD # Liver Cirrhosis #?History of Syncope Plan Patient has chest pain is likely due to history of pulmonary embolism, ACS ruled out We recommend outpatient follow up with Cardiology for consideration for outpatient stress test Considering patient's CÉSAR, monitor for kidney function for adjustment of dose for home medication Lovenox 80 mg b.i.d. subcutaneous for history of multiple DVTs and unknown familial clotting disorder. We will sign out from this case as of now, currently reconsult if needed Case discussion with Dr. Mendoza Plan discussed with: Patient, Other NATE KELLY RESIDENT July 14, 2024 18:50
[2024-07-14] MEDS: InsuLIN REG 1unit/0.01ml Soln (100units/ml) SC SCH ×2 (18:58→22:10)
[2024-07-14 20:00] VITALS: PULSE 72; O2SAT 96
[2024-07-14] MEDS ORDERED: ENOX80IN SC (23:22)
[2024-07-15] MEDS: ENOXAPARIN SOD 80 MG/0.8ML SYRINGE SC SCH
[2024-07-15] MEDS ORDERED: INSU100I4 SC (03:22)
[2024-07-15] MEDS ORDERED: INSU1INJ19 SC (03:22)
[2024-07-15] MEDS ORDERED: PANT40T PO (03:22)
[2024-07-15] MEDS ORDERED: HYDR25TA87 PO (03:22)
[2024-07-15] MEDS ORDERED: SPIR50TA5 PO (03:22)
[2024-07-15] MEDS ORDERED: UMEC1INH INH (03:22)
[2024-07-15] MEDS ORDERED: LOSA-535 PO (03:22)
[2024-07-15] MEDS ORDERED: CARV25TA55 PO (03:22)
[2024-07-15 03:23] VITALS: BP 138/88; PULSE 70; RESP 15; TEMP 97.5; O2SAT 98
[2024-07-15 04:53] VITALS: BP 147/97; PULSE 67; RESP 17; TEMP 98.2; O2SAT 98
[2024-07-15 06:37] LABS: Basophils # (auto) 0 10 ^3/uL (0-0.2); Basophils % (auto) 0.7 % (0.0-2.0); Eosinophils # (auto) 0.1 10 ^3/uL (0-0.8); Eosinophils % (auto) 2.2 % (0.0-7.0); Hematocrit 36.8 % (41.0-53.0); Hemoglobin 12.4 g/dL (13.5-17.5); Lymphocytes # (auto) 1.6 10 ^3/uL (0.4-5.4); Lymphocytes % (auto) 36.7 % (10.0-50.0); Mean Corpuscular Hemoglobin 33.6 pg (28.0-32.0); Mean Corpuscular Hgb Conc. 33.8 g/dL (32.0-36.0); Mean Corpuscular Volume 99.6 fL (80.0-100.0); Monocytes # (auto) 0.5 10 ^3/uL (0-1.3); Monocytes % (auto) 12.4 % (0.0-12.0); Neutrophils # (auto) 2.1 10 ^3/uL (1.6-8.6); Nucleated Red Blood Cells % 0.2 %; Platelet Count (auto) 85 10^3/uL (140-450); Red Blood Cells 3.69 10^6/uL (4.5-5.90); Red Cell Distribution Width 13.3 % (11.8-14.3); White Blood Cell 4.4 10^3/uL (4.4-10.8)
[2024-07-15 06:48] LABS: Anion Gap 9 (5-15); Calcium 8.9 mg/dL (8.7-10.4); Potassium 4.2 mmol/L (3.5-5.1)
[2024-07-15 06:54] LABS: BUN/Creatinine Ratio 11.9 (10.0-20.0); Blood Urea Nitrogen 19 mg/dL (9-23)
[2024-07-15 07:04] LABS: Carbon Dioxide 16 mmol/L (20-31); Chloride 109 mmol/L (98-107); Sodium 134 mmol/L (136-145)
[2024-07-15 07:05] LABS: Glucose 364 mg/dL (74-106)
[2024-07-15 08:00] VITALS: PULSE 73; RESP 19; O2SAT 97
[2024-07-15 09:00] VITALS: BP 126/82; PULSE 70; RESP 20; TEMP 97.6; O2SAT 97
[2024-07-15 12:40] VITALS: BP 114/78; PULSE 69; RESP 20; TEMP 97.9; O2SAT 97
--- NOTE | 2024-07-15 14:51 | DVHDS2 ---
Discharge Summary Date of Admission July 14, 2024 at 00:27 Date of Discharge: July 15, 2024 Labs/Diagnostic Data: Laboratory Results Test 07/15/24 11:41 07/15/24 05:24 07/14/24 16:02 07/14/24 05:30 POC Glucose 417 mg/dl (70-106) White Blood Count 4.4 10^3/uL (4.4-10.8) Red Blood Count 3.69 10^6/uL (4.5-5.90) Hemoglobin 12.4 g/dL (13.5-17.5) Hematocrit 36.8 % (41.0-53.0) Mean Corpuscular Volume 99.6 fL (80.0-100.0) Mean Corpuscular Hemoglobin 33.6 pg (28.0-32.0) Mean Corpuscular Hemoglobin Concent 33.8 g/dL (32.0-36.0) Red Cell Distribution Width 13.3 % (11.8-14.3) Platelet Count 85 10^3/uL (140-450) Mean Platelet Volume 8.4 fL (6.9-10.8) Neutrophils (%) (Auto) 48.0 % (37.0-80.0) Lymphocytes (%) (Auto) 36.7 % (10.0-50.0) Monocytes (%) (Auto) 12.4 % (0.0-12.0) Eosinophils (%) (Auto) 2.2 % (0.0-7.0) Basophils (%) (Auto) 0.7 % (0.0-2.0) Neutrophils # (Auto) 2.1 10 ^3/uL (1.6-8.6) Lymphocytes # (Auto) 1.6 10 ^3/uL (0.4-5.4) Monocytes # (Auto) 0.5 10 ^3/uL (0-1.3) Eosinophils # (Auto) 0.1 10 ^3/uL (0-0.8) Basophils # (Auto) 0 10 ^3/uL (0-0.2) Nucleated Red Blood Cells 0.2 % Sodium Level 134 mmol/L (136-145) Potassium Level 4.2 mmol/L (3.5-5.1) Chloride Level 109 mmol/L (98-107) Carbon Dioxide Level 16 mmol/L (20-31) Anion Gap 9 (5-15) Blood Urea Nitrogen 19 mg/dL (9-23) Creatinine 1.60 mg/dL (0.700-1.30) Glomerular Filtration Rate Calc 49 mL/min (>90) BUN/Creatinine Ratio 11.9 (10.0-20.0) Serum Glucose 364 mg/dL (74-106) Calcium Level 8.9 mg/dL (8.7-10.4) Phosphorus Level 1.9 mg/dL (2.4-5.1) Magnesium Level 1.7 mg/dL (1.6-2.6) Urine Color Light-yellow (Yellow) Urine Clarity Clear (Clear) Urine pH 5.5 (5.0-9.0) Urine Specific [place] 1.027 (1.001-1.035) Urine Protein Trace (Negative) Urine Ketones Trace (Negative) Urine Blood Negative /uL (Negative) Urine Nitrite Negative (Negative) Urine Bilirubin Negative (Negative) Urine Urobilinogen Normal mg/dL (Negative) Urine Leukocyte Esterase Negative /uL (Negative) Urine RBC 1 /hpf (0 - 3) Urine Microscopic WBC < 1 /HPF (0-3) Urine Squamous Epithelial Cells None seen /hpf (<5) Urine Bacteria None seen /hpf (None Seen) Urine Glucose 4+ mg/dL (Normal) Test 07/13/24 23:23 07/13/24 22:47 07/13/24 21:12 07/13/24 20:12 Troponin I High Sensitivity 48 ng/L (</=54) Blood Gas Specimen Type Venous Blood Gas Sample Site Vbg - n/a Blood Gas Patient Temperature 37.0 Arterial Blood Date Drawn [id number] Rivera Test N/a Venous Blood pH 7.390 (7.320-7.430) Venous Blood pCO2 at Patient Temp 23.1 mmHg (38.0-54.0) Venous Blood pO2 at Patient Temp 54.6 mmHg (23.0-48.0) Venous Blood HCO3 13.7 mmol/L (22.0-29.0) Venous Blood Base Excess -9.0 mmol/L (-2.0-3.0) Blood Gas Liter Flow 0.00 Blood Gas Modality Room air Blood Gas Spontaneous Rate 22 FiO2 % 21.0 Specimen Drawn By Bridgette stout rn Serum Osmolality 312 mOsm/kg (278-298) D-Dimer, Quantitative 0.26 mg/L FEU (0.0-0.49) B-Type Natriuretic Peptide 44.89 pg/mL (0-100) Beta-Hydroxybutyric Acid 1.826 mmol/L (< 0.4) Other Laboratory Tests 07/15/24 05:24 Brief Hx & Hospital Course: 58-year-old male with a known history of insulin-dependent diabetes mellitus type 2, hypertension, history of clotting disorder status post IVC filter currently on therapeutic Lovenox presented to the hospital with the chest pain palpitation found to have diabetic ketoacidosis was started on insulin drip. Patient's DKA has been resolved. Patient was seen by Cardiology for chest pain outpatient stress test was recommended. Patient is currently blood sugars are better controlled. Patient is being discharged under stable condition. Condition at Discharge: Stable Final Diagnosis/Problems List Diabetic ketoacidosis, early onset Insulin-dependent diabetes mellitus type 2 DKA resolved Metabolic acidosis secondary to DKA resolved Acute kidney injury likely VMN Hypertension Chest pain, ruled out NV, outpatient stress test per Cardiology History of IVC filter/clotting disorder currently on therapeutic Lovenox. Discharge Disposition: Home Discharge Instruct/Medications Diet: Cardiac 2g Na,low cholest Diet comment: 1999 ADA diet Activity: No Restrictions, As Tolerated Follow Up/Referral: Follow up with the PCP in 1-2 weeks Follow up with the Cardiology as an outpatient for outpatient stress test. Medications: Resume home medications Discharge Statement: "Patient was advised to return to the ER or call 911 if any headaches, dizziness, shortness of breath, chest pain, abdominal pain, bleeding, fevers, or worsening of medical condition. Patient was counseled about treatment plan, medications, possible side effects, patientverbalized understanding. All questions were answered to the best of my ability. This discharge took greater then 30 minutes in planning, reviewing documentation, counseling the patient, and discussing with other team members." ASSESSMENT ASSESSMENT Assessment Diabetic ketoacidosis, early onset Insulin-dependent diabetes mellitus type 2 DKA resolved Metabolic acidosis secondary to DKA resolved Acute kidney injury likely VMN Hypertension Chest pain, ruled out NV, outpatient stress test per Cardiology History of IVC filter/clotting disorder currently on therapeutic Lovenox. Date of Service: July 15, 2024 Billing Provider: BRONWYN CALVERT MD Common Visit Codes: NOT BILLABLE BRONWYN CALVERT MD July 15, 2024 14:51
[2024-07-15] MEDS: MORPHINE SULFATE 4 MG/ML SYR/VIAL IV PRN (15:42)
[2024-07-15 16:19] VITALS: BP 126/82; PULSE 70; RESP 20; TEMP 36.6; O2SAT 97
--- NOTE | 2024-07-16 11:24 | DVHSR ---
APPROVED REPORT EXAM: Two-dimensional and M-mode echocardiogram with Doppler and color Doppler. Blood Pressure: 172/42 mmHg INDICATION Chest Pain Surgery/Intervention ivc filter RISK FACTORS Height: 5'11, Weight: 173 DIMENSIONS LVDd3.6 (3.8-5.7cm)LA (2D)3.4 (1.9-4.0cm)Aortic Root3.6 (2.0-3.7cm) LVDs2.4 (2.5-4.0cm)LA (MM) (1.9-4.0cm)Aortic Cusp Exc2.2 (1.5-2.0cm) EF (%) 60.0 (55-70%)Rt. Atrium2.7 (1.9-4.0cm)Asc. Aorta cm IVSd1.3 (0.7-1.1cm)RV (D)3.3 (1.8-2.4cm) PWd1.2 (0.7-1.1cm) Mitral Valve MitralMitral Stenosis E wave0.62m/sMV Mean GR.mmHg A wave0.77m/sMV Peak GR.mmHg E/A ratio0.82D MVAcm2 DECEL [id number] 1/2 Timems Aortic Valve Aortic ValveAortic Stenosis V11.02m/Deanne Mean GR.3mmHg V21.17m/Deanne Peak GR.5mmHg LVOT Diameter2.1 (1.8-2.4cm)Doppler AVA3.02cm2 Pulmonic Valve V21.08m/s Other Information Quality : Technically LimitedRhythm : Technically limited study due to body habitus.patient position. Conclusion Sinus rhythm. Concentric LVH. Difficult acoustic windows. Aortic root enlargement. Valves appear to be structurally normal. Left ventricular function appears mildly diminished. EF is approximately 50% with normal RV function . Doppler reveals no significant regurgitant jets. No pericardial effusion masses or vegetations.
--- NOTE | 2024-07-23 06:56 | ECG ---
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
== END 2024-07-15 17:20 | disposition home or self-care (01) | DRG 199 ==
LOC: ER 20:07 → OVERFLOW 07-14 00:27 → TELE-WESTW 07-15 03:05
PROVIDERS: ADMIT Nurse Practitioner Family; ATTEND Nurse Practitioner Family
DX: I16.0 Hypertensive urgency (principal); N17.0 Acute kidney failure with tubular necrosis; E11.10 Type 2 diabetes mellitus with ketoacidosis without coma; E11.649 Type 2 diabetes mellitus with hypoglycemia without coma; D68.9 Coagulation defect, unspecified; M94.0 Chondrocostal junction syndrome [Tietze]; K74.60 Unspecified cirrhosis of liver; I10 Essential (primary) hypertension; J44.9 Chronic obstructive pulmonary disease, unspecified; I48.0 Paroxysmal atrial fibrillation; Z95.828 Presence of other vascular implants and grafts; Z79.4 Long term (current) use of insulin; Z98.1 Arthrodesis status; Z88.8 Allergy status to other drugs, medicaments and biological substances; Z79.899 Other long term (current) drug therapy; Z84.1 Family history of disorders of kidney and ureter; Z80.3 Family history of malignant neoplasm of breast; Z87.891 Personal history of nicotine dependence
CPT/HCPCS: 36415; 71045; 80048; 81001; 82010; 82962; 83735; 83880; 83930; 84100; 84484; 85025; 85379; 93005; 93306; 96361; 96374; 96375; G0378; J1815; J2405; J2470